=== PATIENT | male | born 1940 | race Caucasian/White ===

== ENCOUNTER 2016-08-05 22:27 | Emergency (ER) | payer MEDICARE, OTHER ==
[~2016-08-05 22:27] MED LIST: ACIPHEX PO; ALEVE220 MG PO; ANASPAZ0.125 MG PO; ANASPAZ0.125 MG SL; ASA5GR PO; ASAB PO; B12250T PO; CARDU2 PO; CARDU4 PO; COREG6 PO; EXFORGE; EXFORGE HC4 PO; EXFORGE1 TA3 PO; FISH OIL1200 MG PO; FISH-EPA1000 MG PO; FLEX PO; FLEXERIL5 MG PO; HYDROCHLOROT25 MG PO; IMDUR30 PO; KAPIDEX30 MG; KAPIDEX60 MG PO; KLOR-CON 1010 MEQ PO; L40 PO; LIPITOR10 PO; LIPITOR20 PO; MELATONIN CR3 MG PO; METAMUCIL CAN7 OZ PO; METPAKSF PO; NASONEX NAS; NIACIN 500 PO; NITROSTAT0.4 MG SL; PLAVIX PO; PRAVACHOL40 MG PO; PRILO PO; PROTONIX PO; PROVHFA PO; RAN500 PO; SAW PALMETTO PO; SYSTANE OPH; TEKTUR150 PO; TRILIPIX135 MG PO; TYLENOL 8 HR650 MG PO; Z300 PO; ZBETA10 PO; ZIAC10 PO
[2016-08-05 22:56] LABS: BASOPHILS 0.5 %; BASOPHILS ABSOLUTE 0.03 10/3/uL (0.0-0.16); EOSINOPHILS 3.9 %; EOSINOPHILS ABSOLUTE 0.24 10/3/uL (0.0-0.53); HEMOGLOBIN 14.1 g/dL (13.6-17.8); IMMATURE GRANULOCYTES 0.5 %; IMMATURE GRANULOCYTES ABSOLUTE 0.03 10/3/uL (0.0-0.11); LYMPHOCYTES 31.4 %; LYMPHOCYTES ABSOLUTE 1.91 10/3/uL (0.67-4.30); MEAN CORPUS HGB CONC 34.4 g/dL (32.0-36.0); MEAN CORPUSCULAR HEMOGLOB 31.9 pg (26.0-34.0); MEAN CORPUSCULAR VOLUME 92.8 fL (80-100); MEAN PLATELET VOLUME 9.9 fL (9.2-13.0); MONOCYTES 10.5 %; MONOCYTES ABSOLUTE 0.64 10/3/uL (0.21-1.20); NEUTROPHILS 53.2 %; NEUTROPHILS ABSOLUTE 3.23 10/3/uL (2.02-8.40); PLATELET COUNT 149 10/3/uL (150-400); RBC DISTRIBUTION WIDTH 14.2 % (12.0-16.0); RED CELL COUNT 4.42 10/6/uL (4.7-6.1)
[2016-08-05 22:57] LABS: ER CBC TAT 0 Hrs 08 Mins; MANUAL DIFF NO %; WHITE BLOOD CELLS 6.1 10/3/uL (4.5-10.5)
[2016-08-05 23:05] LABS: INTERNATIONAL NORMAL RATI 1.1 UNITS (-); PARTIAL THROMBO TIME 25.1 SEC (22.5-37.2); PROTIME (NOT ORD) 13.9 SEC (12.0-14.5)
[2016-08-05 23:10] LABS: CALCIUM, SERUM 8.8 MG/DL (8.5-10.4); CHEST PAIN PROFILE TAT 0 Hrs 21 Mins; CHLORIDE, SERUM 106 MMOL/L (96-112); CO2 (CARBON DIOXIDE) 27 MMOL/L (24-34); POTASSIUM, SERUM 4.1 MMOL/L (3.5-5.3); SODIUM, SERUM 142 MMOL/L (135-148); TROPONIN I 0.04 NG/ML (<0.05)
[2016-08-05 23:11] LABS: BUN (BLOOD UREA NITROGEN) 23 MG/DL (6-23); CREATININE 1.47 MG/DL (0.70-1.30); GFR AFRICAN AMERICAN 54 ML/MIN (>=60); GFR NON AFRICAN AMERICAN 46 ML/MIN (>=60); GLUCOSE, SERUM 95 MG/DL (60-99)
== END 2016-08-06 01:44 | disposition home or self-care (01) ==
LOC: ER 22:27
PROVIDERS: Specialist
DX: I20.9 Angina pectoris, unspecified (principal); I10 Essential (primary) hypertension; K21.9 Gastro-esophageal reflux disease without esophagitis; Z95.1 Presence of aortocoronary bypass graft; Z98.61 Coronary angioplasty status; I73.9 Peripheral vascular disease, unspecified; Z79.82 Long term (current) use of aspirin; Z79.899 Other long term (current) drug therapy
CPT/HCPCS: 71020; 80048; 83735; 84484; 85025; 85610; 85730; 93005; 99285